=== PATIENT | male | born 1990 | race African-American/Black ===

== ENCOUNTER 2016-08-08 02:39 | Emergency (ER) | payer OTHER ==
[~2016-08-08] VITALS: Ht 182.8 cm; Wt 82.1 kg
[2016-08-08 03:18] LABS: BASO % 0.1 % (0.0-1.0); EOS # 0.1 10*3/uL (0.0-0.4); EOS % 0.7 % (1.0-4.0); HEMATOCRIT 45.7 % (42.0-52.0); LYMPH # 3.7 10*3/uL (1.3-4.4); LYMPH % 42.2 % (27.0-41.0); MEAN CELL VOLUME 94.8 fl (80.0-94.0); MEAN CORPUSCULAR HGB 33.2 pg (27.0-31.0); MEAN PLATELET VOLUME 10.2 fl (9.6-12.3); MONO # 0.8 10*3/uL (0.1-1.0); MONO % 8.5 % (3.0-9.0); NEUT # 4.3 10*3/uL (2.3-7.9); NEUT % 48.2 % (47.0-73.0); PLATELET COUNT AUTOMATED 279 10*3/uL (130-400); RED BLOOD COUNT 4.82 10*6/uL (4.50-5.90); RED CELL DISTRI WIDTH 11.8 % (0-14.5); WHITE BLOOD COUNT 8.9 10*3/uL (4.8-10.8)
[2016-08-08 03:28] LABS: BUN 12 mg/dl (7-24); CARBON DIOXIDE 28 mmol/L (21-32); CHLORIDE 103 mmol/L (98-107); EST GLOM FILT AFRICAN AMERICAN > 60 ml/min; GLUCOSE 83 mg/dL (65-99); POTASSIUM 3.8 mmol/L (3.5-5.1); SODIUM 143 mmol/L (136-145)
[2016-08-08] MEDS ORDERED: PREDNISONE20 M1 PO (04:10)
[2016-08-08] MEDS ORDERED: DIPHENHYDRAMINE50 M3 PO (04:10)
== END 2016-08-08 04:45 | disposition home or self-care (01) ==
LOC: ED 02:39
PROVIDERS: Emergency Medicine Emergency Medical Services
DX: T78.3XXA Angioneurotic edema, initial encounter (principal); L50.9 Urticaria, unspecified; F17.200 Nicotine dependence, unspecified, uncomplicated; F12.10 Cannabis abuse, uncomplicated

== ENCOUNTER 2016-08-20 11:13 | Emergency (ER) | payer OTHER ==
[~2016-08-20] VITALS: Ht 182.8 cm; Wt 82.6 kg
[~2016-08-20 11:13] MED LIST: DIPHENHYDRAMINE50 M3 PO; PREDNISONE20 M1 PO
[2016-08-20] MEDS ORDERED: PREDNISONE10 MG PO (12:12)
== END 2016-08-20 14:28 | disposition home or self-care (01) ==
LOC: ED 11:13
DX: L50.9 Urticaria, unspecified (principal); F17.200 Nicotine dependence, unspecified, uncomplicated

== ENCOUNTER 2016-08-25 13:34 | Emergency (ER) | payer OTHER ==
[~2016-08-25] VITALS: Ht 193 cm; Wt 82.6 kg
[~2016-08-25 13:34] MED LIST changes: +PREDNISONE10 MG PO
[2016-08-25] MEDS ORDERED: BENADRYL ALLERG25 M5 PO (14:44)
[2016-08-25] MEDS ORDERED: CLARITIN10 MG PO (14:44)
== END 2016-08-25 15:02 | disposition home or self-care (01) ==
LOC: ED 13:34
DX: T78.3XXA Angioneurotic edema, initial encounter (principal); Z79.899 Other long term (current) drug therapy

== ENCOUNTER → 2017-01-27 | Emergency (ER) | payer OTHER ==
[~2017-01-27] VITALS: Ht 182.8 cm; Wt 73.0 kg
[~2017-01-27] MED LIST changes: +BENADRYL ALLERG25 M5 PO; +CLARITIN10 MG PO; +OMNICEF300 MG PO; +TESSALON PERLE100 M1 PO
== END ==
LOC: ED 12:55
DX: J32.9 Chronic sinusitis, unspecified (principal); Z79.899 Other long term (current) drug therapy

== ENCOUNTER 2017-04-13 11:16 | Emergency (ER) | payer OTHER ==
[~2017-04-13] VITALS: Ht 182.8 cm; Wt 78.0 kg
[2017-04-13] MEDS ORDERED: PENICILLIN-VK500 MG PO (11:50)
== END 2017-04-13 12:02 | disposition home or self-care (01) ==
LOC: ED 11:16
DX: K08.89 Other specified disorders of teeth and supporting structures (principal); K02.9 Dental caries, unspecified; F17.200 Nicotine dependence, unspecified, uncomplicated; F10.10 Alcohol abuse, uncomplicated; Z79.899 Other long term (current) drug therapy

== ENCOUNTER 2017-06-11 18:17 | Emergency (ER) | payer OTHER ==
[~2017-06-11] VITALS: Wt 73.9 kg
[~2017-06-11 18:17] MED LIST changes: +PENICILLIN-VK500 MG PO
[2017-06-11] MEDS ORDERED: ELIMITE 5%60 GM T (18:28)
== END 2017-06-11 18:47 | disposition home or self-care (01) ==
LOC: ED 18:17
DX: B86 Scabies (principal)

== ENCOUNTER 2019-02-05 13:01 | Emergency (ER) | payer MEDICAID ==
[~2019-02-05] VITALS: Ht 5486 cm
[~2019-02-05 13:01] MED LIST changes: +ELIMITE 5%60 GM T
[2019-02-05 13:02] VITALS: BP 112/64
[2019-02-05 13:26] LABS: BILIRUBIN NEGATIVE (NEGATIVE); BLOOD NEGATIVE (NEGATIVE); CLARITY CLEAR (CLEAR); COLOR YELLOW (YELLOW); GLUCOSE NEGATIVE (NEGATIVE); KETONE NEGATIVE (NEGATIVE); LEUKO ESTERASE NEGATIVE (NEGATIVE); NITRITE NEGATIVE (NEGATIVE); SPECIFIC GRAVITY 1.025 (1.005-1.030); UROBILINOGEN 0.2 E.U./dl (0.2-1.0)
[2019-02-05 13:35] LABS: URINE AMPHETAMINES < 1000 (1000ng/ml); URINE BARBITURATES < 200 (200ng/ml); URINE BENZODIAZEPINES < 200 (200ng/ml); URINE CANNABINOIDS (THC) > 50 (50ng/ml); URINE COCAINE > 300 (300ng/ml); URINE METHADONE < 300 (300ng/ml); URINE OPIATES < 300 (300ng/ml)
[2019-02-05 13:38] LABS: URINE PHENCYCLIDINE < 25 (25ng/ml)
[2019-02-05 13:42] LABS: RBC 0-2 rbc/hpf (0-2); WBC 0-2 wbc/hpf (0-5)
--- NOTE | 2019-02-05 13:58 | NUR ---
PT REFUSED LAB WORK. PT WISHES TO LEAVE AGAINST MEDICAL ADVICE.
== END 2019-02-05 13:57 | disposition left against medical advice (07) ==
LOC: ED 13:01 → EDHOLD 13:37 → ED 13:57
PROVIDERS: Emergency Medicine
DX: F14.20 Cocaine dependence, uncomplicated (principal); F12.10 Cannabis abuse, uncomplicated; F17.200 Nicotine dependence, unspecified, uncomplicated; Z79.899 Other long term (current) drug therapy; Z79.2 Long term (current) use of antibiotics

== ENCOUNTER 2019-09-28 22:40 | Emergency (ER) | payer OTHER ==
[~2019-09-28] VITALS: Ht 182.8 cm; Wt 77.6 kg
[2019-09-29] MEDS ORDERED: KEFLEX500 M1 PO (00:35)
== END 2019-09-29 01:58 | disposition home or self-care (01) ==
LOC: ED 22:40
DX: S81.012A Laceration without foreign body, left knee, initial encounter (principal); S09.93XA Unspecified injury of face, initial encounter; H05.222 Edema of left orbit; Z79.899 Other long term (current) drug therapy; Z79.2 Long term (current) use of antibiotics; Y09 Assault by unspecified means; Y93.89 Activity, other specified; Y92.89 Other specified places as the place of occurrence of the external cause; Y99.8 Other external cause status